=== PATIENT | female | born 1960 | race Caucasian/White ===

== ENCOUNTER 2016-09-10 14:56 | Outpatient (CLI) | payer OTHER | END 2016-09-10 14:57 | disposition home or self-care (01) | LOC: MADLABBHPM 14:56 | PROVIDERS: ATTEND Family Medicine | DX: N94.9 Unspecified condition associated with female genital organs and menstrual cycle (principal) | CPT/HCPCS: 36415; 87086; 87480; 87510; 87660 ==

== ENCOUNTER 2016-09-12 10:06 | Outpatient (CLI) | payer OTHER | END 2016-09-12 10:07 | LOC: MADLABBHPM 10:06 | PROVIDERS: ATTEND Family Medicine | DX: L29.8 Other pruritus (principal) | CPT/HCPCS: 36415; 87070 ==

== ENCOUNTER 2025-04-06 09:31 | Outpatient (CLI) | payer BC | END 2025-04-06 09:32 | disposition home or self-care (01) | LOC: MADRAD 09:31 | PROVIDERS: ATTEND Physician Assistant | DX: M18.11 Unilateral primary osteoarthritis of first carpometacarpal joint, right hand (principal) ==